=== PATIENT | female | born 1955 | race Caucasian/White ===

== ENCOUNTER 2017-08-07 19:46 | Emergency (ER) | payer MEDICAID ==
[2017-08-07 20:46] VITALS: RESP 16
[2017-08-07 21:20] VITALS: O2SAT 97
[2017-08-07] MEDS ORDERED: NS 1,000 ML IV ONE (21:25)
[2017-08-07 21:29] LABS: % IMMATURE GRANULYOCYTES 0.4 % (0.0-1.1); ABSOLUTE IMMATURE GRANULOCYTES 0.03 10^3/uL (0.00-0.10); ADD DIFF? NO; ADD MORPH? NO; ADD SCAN? NO; ATYPICAL LYMPHOCYTE FLAG 20 (0-99); FRAGMENT RBC FLAG 0 (0-99); HEMATOCRIT 39.2 % (38.0-47.0); HEMOGLOBIN 13.8 g/dL (12.6-16.3); LEFT SHIFT FLG 0 (0-99); LIPEMIA HEMOLYSIS FLAG 90 (0-99); MEAN CELL HEMOGLOBIN 29.9 pg (27.9-34.1); MEAN CELL HEMOGLOBIN CONCENTR. 35.2 g/dL (32.4-36.7); MEAN CELL VOLUME 84.8 fL (81.5-99.8); MEAN PLATELET VOLUME 9.6 fL (8.7-11.7); PLATELET CLUMPS FLAG 0 (0-99); PLATELET COUNT 259 10^3/uL (150-400); RED BLOOD CELL COUNT 4.62 10^6/uL (4.18-5.33); RED CELL DISTRIBUTION WIDTH 13.5 % (11.5-15.2)
[2017-08-07 21:33] LABS: ANION GAP 12 mEq/L (8-16); CALCIUM 9.3 mg/dL (8.5-10.4); CARBON DIOXIDE 23 mEq/l (22-31); CHLORIDE 108 mEq/L (97-110); CREATININE 0.7 mg/dL (0.6-1.0); GLOMERULAR FILTRATION RATE > 60; GLUCOSE 92 mg/dL (70-100); POTASSIUM 3.9 mEq/L (3.5-5.2); SODIUM 143 mEq/L (134-144)
[2017-08-07] MEDS ORDERED: HYOSCYAMINE SULFATE 0.125 MG TAB PO ONE (21:44)
--- NOTE | 2017-08-07 21:47 | EDPHY ---
H & P Time Seen by Provider: 08/07/17 21:21 HPI/ROS: Patient presents with mild generalized abdominal cramping slightly loose stools with mucus appearance over the past 24 hours with recent history notable for treatment of a dental element with Amoxil followed within a week or 2 by an episode of diverticulitis confirmed by CT scan at [facility] treated with Augmentin with improvement. She reports no clear exacerbating factors for her generalized crampy abdominal pain. She has no other associated symptoms. ROS: No fevers or chills. GI: No nausea or vomiting Smoking Status: Current every day smoker Physical Exam: General Appearance: Alert, no distress. Eyes: Pupils equal and round no pallor or injection. ENT, Mouth: Mucous membranes moist. Respiratory: There are no retractions, lungs are clear to auscultation. Cardiovascular: Regular rate and rhythm. Gastrointestinal: Hyperactive bowel sounds, soft, nontender Neurological: GCS 15 Skin: Warm and dry, no rashes. Musculoskeletal: Neck is supple nontender. Extremities are symmetrical, full range of motion. Psychiatric: Patient is oriented X 3, there is no agitation. DIFFERENTIAL DIAGNOSIS: After history and physical exam differential diagnosis was considered for viral illness, early C diff colitis, doubt recurrent diverticulitis given lack of focality Constitutional: Initial Vital Signs Temperature (C) 36.8 C 08/07/17 20:40 Heart Rate 70 08/07/17 20:40 Respiratory Rate 16 08/07/17 20:40 Blood Pressure 126/81 H 08/07/17 20:40 O2 Sat (%) 96 08/07/17 20:40 O2 Delivery Mode Room Air Allergies/Adverse Reactions: codeine [Codeine] Allergy (Verified 08/07/17 20:39) Home Medications: Medication Instructions Recorded Sertraline HCl [Zoloft] 100 mg PO DAILY #30 tab 12/08/10 Lisinopril 40 mg PO 06/15/11 traMADol [Ultram] 50 mg PO Q6 PRN #15 tab 12/13/15 HYOSCYAMINE SULFATE [LEVSIN-SL] 0.125 - 0.25 mg SL Q6 PRN #15 08/07/17 tab.subl Topamax 08/07/17 MDM/Departure - MDM Diagnostics: CBC and chemistries normal. Patient unable to provide a stool sample for C diff testing at this time. Medications Given: Discontinued Medications Hyoscyamine Sulfate (Levsin, Hyomax-Sl) 0.125 mg PO EDNOW ONE Stop: 08/07/17 21:45 Last Admin: 08/07/17 22:08 Dose: 0.125 mg Sodium Chloride (Ns) 1,000 mls @ 0 mls/hr IV EDNOW ONE; Wide Open PRN Reason: Protocol Stop: 08/07/17 21:26 Last Admin: 08/07/17 22:08 Dose: 1,000 mls ED Course/Re-evaluation: Patient appears well clinically. She may have for C diff. She understands the need to provide a stool sample to the [facility] lab for testing. She will follow up with Dr. Wong her GI specialist. She is treated here with Levsin with some improvement. - Depart Disposition: Home, Routine, Self-Care Clinical Impression: Generalized abdominal cramping Condition: Good Instructions: Acute Diarrhea (ED), Abdominal Pain (ED) Additional Instructions: Diagnosis: 1. Generalized abdominal cramping 2. Diarrhea Plan: Drink plenty fluids Yogurt and/or probiotic Levsin for cramping if needed Bring a stool sample in the stool collection kit to [facility]. You can drops off in the emergency department waiting room in the will take it to the lab for testing Call Dr. Wong, your GI specialist arrange follow-up appointment this week for further evaluation for any ongoing symptoms. Return emergency department if he have any significant worsening of your symptoms despite the treatment plan Prescriptions: HYOSCYAMINE SULFATE [LEVSIN-SL] 0.125 - 0.25 mg SL Q6 PRN #15 tab.subl PRN Reason: abdominal cramping Referrals: NONE *PRIMARY CARE P,. [Primary Care Provider] - As per Instructions
[2017-08-07 22:29] VITALS: BP 157/92; PULSE 56; TEMP 98.1
== END 2017-08-07 22:30 | disposition home or self-care (01) ==
LOC: CED 19:46
DX: R10.84 Generalized abdominal pain (principal); F17.200 Nicotine dependence, unspecified, uncomplicated; E86.9 Volume depletion, unspecified
CPT/HCPCS: 80048-PO; 85025-PO

== ENCOUNTER 2019-01-16 18:20 | Emergency (ER) | payer MEDICAID ==
--- NOTE | 2019-01-16 19:31 | EDPHY ---
H & P Time Seen by Provider: 01/16/19 18:40 HPI/ROS: CHIEF COMPLAINT: Right middle finger injury History by patient HISTORY OF PRESENT ILLNESS: 63-year-old [id number] woman presents complaining of pain and swelling in her right PIP joint after jamming her finger against a wall while packing boxes today. This happened approximately an hour prior to arrival. She has not taken anything. REVIEW OF SYSTEMS: As in HPI, and all other systems reviewed and are negative Smoking Status: Current every day smoker Physical Exam: General Appearance: Alert and no distress. Head: Normocephalic, atraumatic Eyes: Pupils equal and round no injection. Extraocular movements are intact. Musculoskeletal: Neck is supple and nontender. Extremities: Right middle finger positive swelling around PIP joint, decreased range of motion secondary to pain, positive tenderness at PIP joint especially on the radial side, positive ecchymoses, full range of motion of MCP joint and the IP joint against resistance, distal sensation is intact, distal cap refills less than 2 sec, full range of motion of the PIP joint with pain and actively. Skin: No rashes or lesions except as described above. Constitutional: Initial Vital Signs Temperature (C) 37.1 C 01/16/19 18:27 Heart Rate 72 01/16/19 18:27 Respiratory Rate 16 01/16/19 18:27 Blood Pressure 152/97 H 01/16/19 18:27 O2 Sat (%) 97 01/16/19 18:27 O2 Delivery Mode Room Air Allergies/Adverse Reactions: codeine [Codeine] Allergy (Verified 08/07/17 20:39) Home Medications: Medication Instructions Recorded Sertraline HCl [Zoloft] 100 mg PO DAILY #30 tab 12/08/10 Lisinopril 40 mg PO 06/15/11 traMADol [Ultram] 50 mg PO Q6 PRN #15 tab 12/13/15 HYOSCYAMINE SULFATE [LEVSIN-SL] 0.125 - 0.25 mg SL Q6 PRN #15 08/07/17 tab.subl Topamax 08/07/17 MDM/Departure - MDM Imaging Results: Imaging Impressions Finger X-Ray 01/16/19 18:34 Impression: Acute nondisplaced fracture at the base of the middle phalanx. Findings discussed with Emergency Department physician, Dr. Ayde Liz on January 16, 2019 at 1925 hours. Imaging: Discussed imaging studies w/ call or contact centre operator Radiologist ED Course/Re-evaluation: 63-year-old woman presents with jamming her right middle finger injury. X-rays concerning for nondisplaced fracture of the base of the middle phalanx fracture. Patient was placed in a volar splint and referred to Hand surgery for follow-up. - Depart Disposition: Home, Routine, Self-Care Clinical Impression: Fracture of proximal phalanx of middle finger Qualifiers: Encounter type: initial encounter Fracture type: closed Fracture alignment: nondisplaced Laterality: right Qualified Code(s): S62.642A - Nondisplaced fracture of proximal phalanx of right middle finger, initial encounter for closed fracture Condition: Fair Instructions: Finger Fracture (ED) Additional Instructions: You were seen by Dr. Ayde Liz today. You have a fractured middle phalanx. Wear the splint until you have followed up with the orthopedic hand specialist, Dr. Orellana. You may take ibuprofen and/or Tylenol as needed for pain and ice the finger. Return for any worsening or new concerns. Referrals: ANN LISA [Other] - As per Instructions Lele Orellana MD [Medical Doctor] - As per Instructions
[2019-01-16 20:13] VITALS: BP 145/86
== END 2019-01-16 19:55 | disposition home or self-care (01) ==
LOC: CED 18:20
DX: S62.642A Nondisplaced fracture of proximal phalanx of right middle finger, initial encounter for closed fracture (principal); W23.1XXA Caught, crushed, jammed, or pinched between stationary objects, initial encounter; Y93.89 Activity, other specified
CPT/HCPCS: 73140-PO; 99283-ER; L3925-ER